=== PATIENT | male | born 1980 | race Caucasian/White ===

== ENCOUNTER 2019-08-17 16:56 | Emergency (ER) | payer SELFPAY ==
[~2019-08-17] VITALS: Ht 165.1 cm; Wt 74.8 kg
--- NOTE | 2019-08-17 17:00 | NUR ---
PT AMBULATED TO BED 12, STEADY GAIT.
[2019-08-17 17:06] VITALS: BP 135/68
--- NOTE | 2019-08-17 17:11 | NUR ---
39 Y/M PRESENTS TO ED FOR FB IN L EYE SINCE LAST NIGHT WHILE PT WAS DOING YARD WORK. 5/10 PAIN. PT ATTEMPTED TO IRRIGATE AT HOME. PT REPORTS IRRITATION AND REPORTS SLIGHT BLURRED VISON. EYE APPREARS RED AND IRRITATED, NO VISUAL FB NOTED. RR EVEN AND UNLABORED. DENIES COUGH, CP, N/V/D OR DYSURIA. SKIN IS DRY AND WARM TO TOUCH. PMH- DENIES NKDA
[2019-08-17] MEDS ORDERED: FLUORESCEIN OPTH STRIP 1 MG ONE (17:23)
[2019-08-17] MEDS ORDERED: TETRACAINE HCL/PF 0.5% OPTH 4 ML BTL ONE (17:23)
[2019-08-17 17:48] VITALS: BP 135/68
--- NOTE | 2019-08-17 17:49 | NUR ---
Patient discharged with v/s stable. Written and verbal after care instructions given and explained. Patient alert, oriented and verbalized understanding of instructions. Ambulatory with steady gait. All questions addressed prior to discharge. ID band removed. Patient advised to follow up with PMD. Rx of MOTRIN/ GERAMYCIN 0.3% OINTMENT given. Patient educated on indication of medication including possible reaction and side effects. Opportunity to ask questions provided and answered.
== END 2019-08-17 17:49 | disposition home or self-care (01) ==
LOC: MED 16:56
DX: S05.02XA Injury of conjunctiva and corneal abrasion without foreign body, left eye, initial encounter (principal); X58.XXXA Exposure to other specified factors, initial encounter; Y93.89 Activity, other specified; Y92.89 Other specified places as the place of occurrence of the external cause; Y99.8 Other external cause status
CPT/HCPCS: 99283